=== PATIENT | male | born 1985 ===

== ENCOUNTER 2021-08-04 09:42 | Emergency (ER) | payer OTHER ==
--- NOTE | 2021-08-04 09:54 | EDM.PDOC ---
ED HPI GENERAL MEDICAL PROBLEM - General Chief Complaint: Respiratory Problem Stated Complaint: SOB, CHEST PAIN Time Seen by Provider: 08/04/21 09:48 Source of Information: Reports: Patient History Limitations: Reports: No Limitations - History of Present Illness INITIAL COMMENTS - FREE TEXT/NARRATIVE: HISTORY AND PHYSICAL: History of present illness: Patient is a 36-year-old male who presents to the emergency room with known COVID-19 with complaints of shortness of breath and chest pain. Patient states he has had respiratory symptoms for approximately 7 to 10 days, was diagnosed with COVID-19 on 07/29/2021. The provider put him on Doxycycline BID x 7 days (still taking). Over the past 3 to 4 days he has noticed increased shortness of breath and chest pain only when he lays flat on his back. He is concerned he could have pneumonia. Patient denies any fever, chills, headache, change in vision, syncope or near syncope. Denies any back pain, shortness of breath or cough. Denies any abdominal pain, nausea, vomiting, diarrhea, constipation or dysuria. Has not noted any blood in urine or stool. Patient has been eating and drinking appropriately. No recent travel or sick contacts. Review of systems: As per history of present illness and below otherwise all systems reviewed and negative. Past medical history: As per history of present illness and as reviewed below otherwise noncontributory. Surgical history: As per history of present illness and as reviewed below otherwise noncontributory. Social history: See social history for further information Family history: As per history of present illness and as reviewed below otherwise noncontributory. Physical exam: General: Well developed and well nourished. Alert and orientated x 3. Nontoxic in appearance and in no acute distress. Vital signs are stable and have been reviewed by me. Nursing notes were reviewed. HEENT: Atraumatic, normocephalic, pupils equal and reactive bilaterally, negative for conjunctival pallor or scleral icterus, mucous membranes moist, TMs normal bilaterally, throat clear, neck supple, nontender, trachea midline. No drooling or trismus noted. No meningeal signs. No hot potato voice noted. Lungs: Clear to auscultation bilaterally. No wheezes, rales, or rhonchi. Chest nontender. Normal work of breathing, no accessory muscles used. Heart: S1S2, regular rate and rhythm without overt murmur, gallops, or rubs. No JVD. No peripheral edema Abdomen: Soft, nondistended, nontender. Normoactive bowel sounds. Negative for masses or costovertebral tenderness. Skin: Intact, warm, dry. No lesions or rashes noted. Hematologic: No petechiae or purpra. Mucosa appropriate color and normal nail bed color and refill. Extremities: Atraumatic, moves all extremities per self without difficulty or deficits, negative for cords or calf pain. Neurovascular unremarkable. Neuro: Awake, alert, oriented. Cranial nerves II through XII unremarkable. Cerebellum unremarkable. Motor and sensory unremarkable throughout. Exam nonfocal. Psychiatric: Mood and affect are appropriate. Normal thought process. Answering questions appropriately. Please note that the patient was seen and evaluated during the 2019 SARS-CoV-2 novel coronavirus pandemic period. Community viral transmission is ongoing at time of this encounter and the emergency department is operating under pandemic response procedures. Medical Decision Making: Labs are unremarkable. Chest x-ray shows hyperinflation and mild interstitial prominence with questionable developing airspace opacities within the right upper lobe which may represent developing infiltrates. After reviewing his chest x-ray, I do not feel patient requires additional antibiotics or change in treatment course. He is already on Doxycline from his PCP. Labs are unremarkable. VSS. I have talked with the patient about today's findings, in addition to providing specific details for plan of care. Reassessment at the time of disposition demonstrates that the patient is in no acute distress. The patient is stable for discharge, counseling was provided and we discussed in great detail signs and symptoms that would prompt them to return to the Emergency Department. Medication, follow up and supportive care measures were reviewed and discussed. Voices understanding and is agreeable to plan of care. Denies any further questions or concerns at this time. Diagnostics: CBC, CMP, Troponin, EKG, CXR Therapeutics: None Prescription: None Impression: COVID-19 Plan: 1. You were evaluated today on an emergent basis. Your chest x-ray and lab work is within normal limits. The symptoms you are experiencing are typical with COVID. Your vital signs and oxygen saturation are well enough that you were able to monitor your symptoms at home. Continue to monitor for trouble breathing, new confusion or inability to arouse, bluish lips or face or any of the other symptoms we discussed -if this occurs please return to the emergency room immediately. 2. Please self quarantine until cleared by [facility]. 3. You can take NyQuil during the evening to help get a restful night sleep. May alternate Tylenol and ibuprofen as needed for pain and fever management. 4. The [facility] Hotline phone number , They are open Tuesday - Tuesday 7am - 7pm. Follow up with your primary care provider for re-evaluation as directed. Definitive disposition and diagnosis as appropriate pending reevaluation and review of above. chest Pain Score (Numeric/FACES): 2 - Related Data Allergies Allergy/AdvReac Type Severity Reaction Status Date / Time amoxicillin Allergy Other Verified 08/04/21 09:55 azithromycin [From Zithromax] Allergy Other Verified 08/04/21 09:55 Penicillins Allergy Other Verified 08/04/21 09:55 Home Meds: Home Meds DULoxetine [Cymbalta] 30 mg PO DAILY 08/04/21 [History] Doxycycline [Vibramycin] 100 mg PO BID 08/04/21 [History] Meloxicam 15 mg PO DAILY 08/04/21 [History] ED ROS GENERAL - Review of Systems Review Of Systems: Comprehensive ROS is negative, except as noted in HPI. ED EXAM, GENERAL - Physical Exam Exam: See Below (See dictation) Course - Vital Signs Last Recorded V/S: Last Vital Signs Temp 98.3 F 08/04/21 09:50 Pulse 95 08/04/21 10:48 Resp 20 08/04/21 10:48 BP 112/71 08/04/21 10:48 Pulse Ox 94 L 08/04/21 10:48 - Orders/Labs/Meds Labs: Laboratory Tests 08/04/21 08/04/21 Range/Units 10:07 10:07 WBC 5.23 (4.0-11.0) K/uL RBC 4.84 (4.50-5.90) M/uL Hgb 14.2 (13.0-17.0) g/dL Hct 40.6 (38.0-50.0) % MCV 83.9 (80.0-98.0) fL MCH 29.3 (27.0-32.0) pg MCHC 35.0 (31.0-37.0) g/dL RDW Std Deviation 38.8 (28.0-62.0) fl RDW Coeff of Braeden 13 (11.0-15.0) % Plt Count 127 L (150-400) K/uL MPV 9.60 (7.40-12.00) fL Add Manual Diff YES Neutrophils % (Manual) 55 (48.0-80.0) % Band Neutrophils % 3 % Lymphocytes % (Manual) 33 (16.0-40.0) % Monocytes % (Manual) 8 (0.0-15.0) % Nucleated RBC % 0.0 /100WBC Absolute Seg Neuts 2.9 (1.4-5.7) Band Neutrophils # 0.2 Lymphocytes # (Manual) 1.7 (0.6-2.4) Monocytes # (Manual) 0.4 (0.0-0.8) Nucleated RBCs # 0 K/uL Sodium 141 (136-148) mmol/L Potassium 3.8 (3.5-5.1) mmol/L Chloride 101 (98-107) mmol/L Carbon Dioxide 31.1 (21.0-32.0) mmol/L BUN 8 (7.0-18.0) mg/dL Creatinine 1.0 (0.8-1.3) mg/dL Est Cr Clr Drug Dosing 108.77 mL/min Estimated GFR (MDRD) > 60.0 ml/min Glucose 109 H (74-106) mg/dL Calcium 8.1 L (8.5-10.1) mg/dL Total Bilirubin 0.4 (0.2-1.0) mg/dL AST 45 H (15-37) IU/L ALT 34 (14-63) IU/L Alkaline Phosphatase 59 (46-116) U/L Troponin I < 0.050 (0.000-0.056) ng/mL Total Protein 6.7 (6.4-8.2) g/dL Albumin 3.4 (3.4-5.0) g/dL Globulin 3.3 (2.6-4.0) g/dL Albumin/Globulin Ratio 1.0 (0.9-1.6) Departure - Departure Time of Disposition: 11:09 Disposition: Home, Self-Care 01 Clinical Impression: COVID-19 - Discharge Information Instructions: 10 Things You Can Do to Manage Your COVID-19 Symptoms at Home - CDC (05/15/2021) Referrals: PCP,None [Primary Care Provider] - Forms: ED Department Discharge Additional Instructions: The following information is given to patients seen in the emergency department who are being discharged to home. This information is to outline your options for follow-up care. We provide all patients seen in our emergency department with a follow-up referral. The need for follow-up, as well as the timing and circumstances, are variable depending upon the specifics of your emergency department visit. If you don't have a primary care physician on staff, we will provide you with a referral. We always advise you to contact your personal physician following an emergency department visit to inform them of the circumstance of the visit and for follow-up with them and/or the need for any referrals to a consulting specialist. The emergency department will also refer you to a specialist when appropriate. This referral assures that you have the opportunity for follow-up care with a specialist. All of these measure are taken in an effort to provide you with optimal care, which includes your follow-up. Under all circumstances we always encourage you to contact your private physician who remains a resource for coordinating your care. When calling for follow-up care, please make the office aware that this follow-up is from your recent emergency room visit. If for any reason you are refused follow-up, please contact the [facility] Emergency Department at and asked to speak to the emergency department charge nurse. [facility] [address] [place] [id number] [id number] Thank you for choosing the [facility] emergency department in [place] for your medical needs today. It was a pleasure caring for you. Today you were seen in the emergency department for symptoms related to COVID-19. 1. You were evaluated today on an emergent basis. Your chest x-ray and lab work is within normal limits. The symptoms you are experiencing are typical with COV ID. Your vital signs and oxygen saturation are well enough that you were able to monitor your symptoms at home. Continue to monitor for trouble breathing, new confusion or inability to arouse, bluish lips or face or any of the other symptoms we discussed -if this occurs please return to the emergency room immediately. 2. Please self quarantine until cleared by [facility]. 3. You can take NyQuil during the evening to help get a restful night sleep. May alternate Tylenol and ibuprofen as needed for pain and fever management. 4. The [facility] Hotline phone number , They are open Tuesday - Tuesday 7am - 7pm. Follow up with your primary care provider for re-evaluation as directed. Sepsis Event Note (ED) - Focused Exam Vital Signs: Vital Signs Temp Pulse Resp BP Pulse Ox 08/04/21 10:48 95 20 112/71 94 L 08/04/21 09:50 98.3 F 100 18 113/75 94 L
--- NOTE | 2021-08-04 10:05 | PCM.EKG ---
#1 Interpretation EKG Date: 08/04/21 Time: 09:51 Rhythm: NSR Rate (Beats/Min): 88 [place]: Normal P-Wave: Present QRS: Normal ST-T: Normal QT: Normal [place]/PQ Interval: 111 Comparison: NA - No Prior EKG EKG Interpretation Comments: no ischemic changes
--- NOTE | 2021-08-04 10:46 | CR ---
Indication: Chest Pain Comparison: None available. Technique: Single AP view chest Findings: There is hyperinflation and chronic interstitial change. There are patchy airspace opacities seen within right upper lobe. There is minimal basilar atelectasis and/or parenchymal scarring. The cardiomediastinal silhouette is within normal limits. The bony thorax is grossly intact. Impression: Hyperinflation and mild interstitial prominence with questionable developing airspace opacities within the right upper lobe which may represent developing infiltrates. Dictated by Rene Viera MD @ 08/04/2021 10:44:46 AM (Electronically Signed)
[2021-08-04 10:59] LABS: BLOOD UREA NITROGEN,BUN 8 mg/dL (7.0-18.0); CARBON DIOXIDE,CO2 31.1 mmol/L (21.0-32.0); CHLORIDE,CL 101 mmol/L (98-107); GLUCOSE RANDOM 109 mg/dL (74-106); POTASSIUM,K 3.8 mmol/L (3.5-5.1); SODIUM,NA 141 mmol/L (136-148)
== END 2021-08-04 11:27 | disposition home or self-care (01) ==
LOC: MW.ED 09:42
DX: U07.1 COVID-19 (principal); Z88.0 Allergy status to penicillin; Z88.1 Allergy status to other antibiotic agents
CPT/HCPCS: 36415; 71045; 71045-26; 80053; 84484; 85025; 99285-25